=== PATIENT | male | born 1990 | race Caucasian/White ===

== ENCOUNTER 2024-05-22 20:58 | Emergency (ER) | payer SELFPAY ==
[~2024-05-22] VITALS: Ht 175.3 cm; Wt 87.0 kg
[2024-05-22 21:02] VITALS: O2SAT 98
[2024-05-23 00:27] LABS: EOSINOPHILS % 0.9 % (0.0-5.0); HEMATOCRIT. 40.4 % (42.0-52.0); HEMOGLOBIN. 13.7 g/dL (14.0-18.0); LYMPHOCYTES % 17.9 % (20.0-50.0); MEAN CORPUSCULAR HEMOGLOBIN 35.6 pg (28.0-32.0); MEAN CORPUSCULAR HGB CONC 33.9 g/dL (31.0-37.0); MEAN PLATELET VOLUME 8.5 fl (7.4-10.4); MONOCYTES % 7.9 % (2.0-8.0); NEUTROPHILS % 72.3 % (40.0-76.0); RED BLOOD CELL COUNT 3.85 mill/uL (4.7-6.1); RED CELL DISTRIBUTION WIDTH 14.8 % (11.6-14.6); WHITE BLOOD COUNT 3.3 x1000/uL (4.5-11.0)
[2024-05-23 00:35] LABS: CHLORIDE 108 mEq/L (98-107); POTASSIUM 3.5 mEq/L (3.5-5.1); SODIUM 143 mEq/L (136-145)
[2024-05-23 00:36] LABS: CALCIUM 8.6 mg/dL (8.7-10.4); CARBON DIOXIDE 26 mEq/L (21-32)
[2024-05-23 00:41] LABS: CREATININE 0.6 mg/dL (0.6-1.3); GLUCOSE 101 mg/dL (70-105)
[2024-05-23 00:43] LABS: ALANINE AMINOTRANSFERASE 109 IU/L (10-49); ALBUMIN 4.8 g/dL (3.2-4.8); ASPARTATE AMINOTRANSFERASE 220 IU/L (<34); PROTEIN TOTAL 8.3 g/dL (6.0-8.3)
[2024-05-23 00:51] LABS: UREA NITROGEN BLOOD < 5 mg/dL (9-23)
[2024-05-23 00:54] LABS: DIFFERENTIAL COMMENT 1
[2024-05-23 02:57] LABS: ETHANOL BLOOD 460 mg/dL (<10)
[2024-05-23 03:00] VITALS: BP 108/65; PULSE 77; RESP 16; TEMP 36.94740; O2SAT 100
[2024-05-25 11:48] LABS: PLATELET 50 x1000/uL (130-400)
== END 2024-05-23 10:03 | disposition left against medical advice (07) ==
LOC: ER 20:58 → EDBEDREQTM 05-23 06:33 → EDBEDREQ 05-23 06:33 → ER 05-23 10:03
DX: R51.9 Headache, unspecified (principal); D69.6 Thrombocytopenia, unspecified; J45.909 Unspecified asthma, uncomplicated
CPT/HCPCS: 99284; 80053; 80320; 85025; 36415; 70450; 70486; 72125; Z7610; G0480

== ENCOUNTER 2024-10-15 13:01 | Emergency (ER) | payer SELFPAY ==
[~2024-10-15] VITALS: Ht 170.2 cm; Wt 97.0 kg
[2024-10-15 13:02] VITALS: O2SAT 99
[2024-10-15] MEDS ORDERED: LEVE1000 MT (13:06)
[2024-10-15] MEDS ORDERED: ALBU05 IH (13:06)
[2024-10-15 13:35] VITALS: BP 128/80; PULSE 96; RESP 13; TEMP 36.8; O2SAT 99
[2024-10-15] MEDS ORDERED: TETANUS, DIPHTHERIA, PERTUSSIS VAC/PF 0.5ML (>10YR OLD) IM ONE (13:45)
== END 2024-10-15 13:48 | disposition home or self-care (01) ==
LOC: ER 13:16
DX: S01.21XA Laceration without foreign body of nose, initial encounter (principal); S09.93XA Unspecified injury of face, initial encounter; F17.200 Nicotine dependence, unspecified, uncomplicated; J45.909 Unspecified asthma, uncomplicated; F10.90 Alcohol use, unspecified, uncomplicated; Y90.9 Presence of alcohol in blood, level not specified; W18.30XA Fall on same level, unspecified, initial encounter; Y93.89 Activity, other specified; Y92.89 Other specified places as the place of occurrence of the external cause; Y99.8 Other external cause status
CPT/HCPCS: 99284